=== PATIENT | male | born 1980 | race African-American/Black ===

== ENCOUNTER 2016-08-14 21:40 | Emergency (ER) | payer SELFPAY ==
--- NOTE | ~2016-08-14 | CR253 ---
[facility] A Service of [facility] & [facility] RADIOLOGY TEXT RESULTS PATIENT: JAYLENE HERNANDEZ LOCATION: [facility] : 78 UNIT #: [id number] AGE: [address]: Abdelrahman Gabriel MD SEX: M ORDER DR: [id number] [facility] [address]. [place], [place] [address] [id number] MR#: [id number] #: [id number] NAME: JAYLENE HERNANDEZ : 1980 SEX: M STUDY DATE/TIME: 08/14/2016 22:00 UNIT: [facility] ROOM: STUDY DESCRIPTION: CR Tibia and Fibula 2 Views Rt Attending Physician: Abdelrahman Gabriel M.D. Ordering Physician: Abdelrahman Gabriel M.D. Primary Care Physician: No Primary Care Physician MEDICAL IMAGING REPORT This report is preliminary unless electronic signature is present EXAM Right tib-fib 08/14/2016. INDICATIONS Weakness, right leg pain, numbness and tingling that began today. No known injury. TECHNIQUE 2 views of the tib-fib on the right. COMPARISON No comparisons. FINDINGS There is mild degenerative change in the right knee involving the medial and patellofemoral compartments. No acute fracture. Soft tissues demonstrate no acute finding. IMPRESSION 1. Degenerative change of the right knee, otherwise negative. Dictated by... Francisco Dale M.D. THIS IS AN ELECTRONICALLY VERIFIED REPORT Francisco Dale M.D. at 08/15/2016 10:02 PM CHRISSY/tessie TD: 08/15/2016 09:57 JOB #: [id number] MEDICAL IMAGING REPORT Page 1 of 1 COPY
--- NOTE | ~2016-08-14 | CR21 ---
[facility] A Service of [facility] / [facility] RADIOLOGY TEXT RESULTS PATIENT: JAYLENE HERNANDEZ LOCATION: [facility] : 78 UNIT #: [id number] AGE: [address]: Abdelrahman Gabriel MD SEX: M ORDER DR: [id number] [address] [address] [id number] E MR#: [id number] #: [id number] NAME: JAYLENE HERNANDEZ : 1980 SEX: M STUDY DATE/TIME: 08/14/2016 21:58 UNIT: [facility] ROOM: STUDY DESCRIPTION: CR Ankle Min 3 Views Rt Attending Physician: Abdelrahman Gabriel M.D. Ordering Physician: Abdelrahman Gabriel M.D. Primary Care Physician: No Primary Care Physician MEDICAL IMAGING REPORT This report is preliminary unless electronic signature is present EXAM Right ankle, 08/14/2016. INDICATION Weakness, right leg pain, numbness, tingling symptoms began today. No known injury. TECHNIQUE 3 views of the right ankle. COMPARISON STUDIES No comparisons FINDINGS There is generalized soft tissue prominence which is nonspecific. Ankle mortise intact. No acute fracture. Mild degenerative change in the midfoot. IMPRESSION Nonspecific generalized soft tissue prominence, otherwise negative right ankle. Dictated by... Francisco Dale M.D. THIS IS AN ELECTRONICALLY VERIFIED REPORT Francisco Dale M.D. at 08/15/2016 10:02 PM CHRISSY/juan antonio TD: 08/15/2016 09:59 JOB #: [id number] [facility] A Service of [facility] RADIOLOGY TEXT RESULTS PATIENT: JAYLENE HERNANDEZ LOCATION: [facility] : 78 UNIT #: [id number] AGE: [address]: Abdelrahman Gabriel MD SEX: M ORDER DR: MEDICAL IMAGING REPORT Page 1 of 1 COPY
[2016-08-14 22:39] LABS: BASOPHIL# 0.1 X10e3 (0-0.3); BASOPHIL% 0.2 % (0-2.5); EOSINOPHIL% 0.1 % (0.0-7.0); HEMATOCRIT 47.9 % (38.0-50.0); HEMOGLOBIN 15.4 gm/dL (13.0-16.0); LYMPHOCYTE# 1.3 X10e3 (1.0-3.5); LYMPHOCYTE% 4.4 % (17.0-45.0); MEAN CELL VOLUME 85.4 FL (83-96); MEAN CORPUSCULAR HEMOGLOBIN 27.4 PG (28-34); MEAN CORPUSCULAR HGB CONC 32.1 g/dL (30-36); MEAN PLATELET VOLUME 8.1 FL (6.5-11.5); MONOCYTE# 1.1 X10e3 (0-1.0); MONOCYTE% 3.5 % (3.0-12.0); NEUTROPHIL# 27.9 X10e3 (1.5-7.1); NEUTROPHIL% 91.8 % (40-75); PLATELET COUNT 316 X10e3 (140-420); RED BLOOD COUNT 5.61 X10e (3.90-5.60); RED CELL DISTRIBUTION WIDTH 14.1 % (11.0-15.5); WHITE BLOOD COUNT 30.4 X10e3 (4.0-10.5)
[2016-08-14 22:40] LABS: DIFF IND NO
[2016-08-14 22:47] LABS: INFLUENZA A POS (NEG); INFLUENZA B NEG (NEG)
[2016-08-14 22:52] LABS: DIFFERENTIAL COMMENT AYP.LYMPHS; PLATELET ESTIMATE NORMAL (NORMAL); STOMATOCYTE PRESENT
[2016-08-14 23:01] LABS: ALBUMIN SERUM 4.1 g/dL (3.5-5.0); ALKALINE PHOSPHATASE 59 U/L (32-92); ALT (SGPT) 25 U/L (10-40); AST (SGOT) 21 U/L (10-42); BILIRUBIN, DIRECT 0.1 mg/dL (0.0-0.2); BILIRUBIN,INDIRECT 0.6 mg/dL (0.0-0.9); BILIRUBIN,TOTAL 0.7 mg/dL (0.2-2.0); BLOOD UREA NITROGEN 11 mg/dL (9-23); BUN/CREATININE RATIO 8.46; CALCIUM SERUM 8.6 mg/dL (8.4-10.2); CARBON DIOXIDE 25 mmol/L (22-31); CHLORIDE 96 mmol/L (100-111); CREATININE SERUM 1.3 mg/dL (0.6-1.4); GLOM FILT RATE Estimated 80.8 mL/min (>60); GLUCOSE FASTING 111 mg/dL (70-110); POTASSIUM 3.9 mmol/L (3.5-5.1); PROTEIN TOTAL SERUM 8.1 g/dL (6.0-8.3); SODIUM 130 mmol/L (135-145)
[2016-08-14 23:02] LABS: ALCOHOL BLOOD <5 mg/dL (0)
== END 2016-08-14 23:15 | disposition home or self-care (01) ==
LOC: CED 21:40
PROVIDERS: Emergency Medicine
DX: J10.1 Influenza due to other identified influenza virus with other respiratory manifestations (principal); F17.200 Nicotine dependence, unspecified, uncomplicated
CPT/HCPCS: 36415; 73590; 73610; 80048; 80076; 82947; 85025; 87804; 96361; 96374; 99284; G0480; J1885